=== PATIENT | male | born 1960 | race Caucasian/White ===

== ENCOUNTER 2025-04-23 14:09 | Emergency (ER) | payer MEDICAID, SELFPAY ==
[2025-04-23 14:09] VITALS: BMI 21.2
[2025-04-23 15:00] VITALS: BP 130/79; PULSE 76; RESP 20; TEMP 36.8; O2SAT 96
--- NOTE | 2025-04-23 15:09 | XR_ITS ---
Examination: Lumbar spine 3 views TECHNIQUE: AP lateral, lateral lower lumbar spine 3 views Date and time: April 23, 2025 1545 hours INDICATIONS: Low back pain this week FINDINGS: Lumbar levoscoliosis 15 degrees Moderate osteopenia Chronic osteoporotic compression L1 No acute lumbar fracture Moderate to advanced diffuse lumbar degenerative disc disease No spondylolisthesis IMPRESSION: Moderate to advanced diffuse lumbar degenerative disc disease
--- NOTE | 2025-04-23 15:14 | PD.EDADULT ---
ED General RME/HPI General Chief complaint: Back Pain/Injury Stated complaint: LOWER BACK PAIN RADIATING DOWN BLE Time Seen by Provider: 04/23/25 14:52 Arrival date/time: 04/23/25 14:09 CC: Low back pain HPI onset 5 days ago after lifting, last medications for pain taken was 4 days ago. Patient states chiropractor did not provide relief prior history of similar events has had chronic back pain episodes with exacerbation after lifting patient admits that he was helping his daughter move on 5 days ago which elicited this pain. Patient denies bowel or bladder symptoms saddle anesthesia numbness tingling or weakness in the lower extremities. No OTC medicines taken in the last 48 hours patient is awake alert oriented nontoxic-appearing not in any acute distress. Related Data Home Medications ?Medication ?Instructions ?Recorded ?Confirmed albuterol sulfate 90 mcg/actuation 1 puff inhalation Q4H PRN 02/06/24 02/06/24 aerosol inhaler Shortness Of Breath Or Wheezing fluticasone furoate 200 1 inh inhalation DAILY 02/06/24 02/06/24 mcg-vilanterol 25 mcg/dose inhalation powder Previous Rx's ?Medication ?Instructions ?Recorded ciprofloxacin HCl 500 mg tablet 500 mg PO BID #14 tabs 02/07/24 (Cipro) hydrocodone 5 mg-acetaminophen 325 1 tab PO Q6H PRN pain #30 tabs 02/07/24 mg tablet cyclobenzaprine 10 mg tablet 10 mg PO HS #7 tabs 04/23/25 prednisone 20 mg tablet See Taper PO BID 3 days #6 tabs 04/23/25 Allergies Allergy/AdvReac Type Severity Reaction Status Date / Time No Known Allergies Allergy Verified 04/23/25 14:12 Review of Systems Review of Systems Narrative Review of Systems: GEN: No fever, no chills, no weight loss EYES: No discharge, no visual changes, no pain HEENT: No ear pain, no congestion, no sore throat PULM: No shortness of breath, no cough, no congestion CV: No chest pain, no dyspnea on exertion, no palpitations GI: No nausea, no vomiting, no diarrhea, no pain, no constipation : No frequency, no urgency, no dysuria MUSC/SKEL: No joint pain, + back pain SKIN: No rash PSYCH: No hallucinations, no depression HEME/LYMPH: No easy bleeding or bruising tendencies NEURO: No weakness, no headache Past Medical History Past Medical History NEUROLOGIC: Negative Neurological Disorders or Seizures CARDIAC: Negative Cardiac Disorders or Congestive Heart Failure RESPIRATORY: Positive Chronic Obstructive Pulmonary Disease (COPD) and Asthma GASTROINTESTINAL: Negative Gastrointestinal Disorders or Hepatitis GENITOURINARY: Negative Genitourinary Disorders or Renal Disease MUSCULOSKELETAL: Positive Musculoskeletal Disorders and Fractures (right broken clavicle) ENDOCRINE: Negative Endocrine Disorders, Diabetes Mellitus Type 1 or Diabetes Mellitus Type 2 HEMATOLOGIC: Negative Blood Disorders OTHER HISTORY: Positive Hospitalization (surgery) and Chicken Pox; Negative Autoimmune Disease, Shingles, Blood Transfusions, Blood Transfusion Reaction, Anesthesia Reactions or Cancer Family History FAMILY HISTORY: Negative Family Psychiatric Problems, Family Respiratory Disorders, Family Cardiac Disorders, Family Gastrointestinal Problems, Family Cancer, Family Surgery or Family Anesthesia Reaction Social History SMOKING STATUS: Current every day smoker ED Exam Narrative Physical exam: [General: Thin but not in any acute distress Head normocephalic HEENT: Within acceptable limits Neck is supple nontender Chest equal chest rise nontender to palpation Respiratory: Clear to auscultation no wheezes crackles or rubs CV: Rate rhythm is regular no murmurs rubs or clicks Abdomen is flat, soft nontender no masses positive bowel sounds all 4 quadrants Back: Right lumbar paraspinal tenderness on palpation no left-sided tenderness no spinous process tenderness. Skin: Intact no petechiae rash induration ulceration or crepitus Extremities: Moving all extremity against resistance cap refill less than 2 seconds neurosensory intact Neuro: Awake alert oriented x3 Glascow coma 15 no focal deficits] Course Quality Measures none Orders Category Date Time Status XR lumbar spine 2-3V Stat Exams 04/23/25 15:09 Completed Dexamethasone Inj [Decadron Inj] Med 04/23/25 15:11 Discontinued 10 mg IM X1 ONE Ketorolac Inj [Toradol Inj] Med 04/23/25 15:09 Discontinued 30 mg IM X1 ONE Vital Signs Vital signs: Vital Signs Temperature 98.3 F 04/23/25 15:00 Pulse Rate 76 04/23/25 15:00 Respiratory Rate 20 04/23/25 15:00 Blood Pressure 130/79 04/23/25 15:00 Pulse Oximetry (%) 96 04/23/25 15:00 Oxygen Delivery Method Room Air 04/23/25 15:00 Discharge Plan Plan Patient Disposition: HOME (Self Care) Patient condition on transfer: Stable Prescriptions/Referrals Prescriptions/Med Rec: New prednisone 20 mg tablet See Taper PO BID 3 Days Qty: 6 0RF Taper: Prednisone Taper 20 mg DAILY for 2 Days and 0 Hour 10 mg DAILY for 2 Days and 0 Hour 5 mg DAILY for 7 Days and 0 Hour cyclobenzaprine 10 mg tablet 10 mg PO HS Qty: 7 0RF No Action albuterol sulfate 90 mcg/actuation HFA aerosol inhaler 1 puff INHALATION Q4H PRN (Reason: Shortness Of Breath Or Wheezing) Patient Comments: INHALE 1 PUFF BY MOUTH EVERY 4 HOURS NEEDED fluticasone furoate-vilanterol 200-25 mcg/dose blister with device 1 inh INHALATION DAILY Patient Comments: INHALE 1 PUFF BY MOUTH ONCE DAILY hydrocodone-acetaminophen 5-325 mg tablet 1 tab PO Q6H MDD 4 PRN (Reason: pain) Qty: 30 0RF ciprofloxacin HCl [Cipro] 500 mg tablet 500 mg PO BID Qty: 14 0RF Problem List Clinical Impression: Strain of lumbar region, Lumbar radiculopathy Patient/Caregiver Discharge Instructions Other Activity Instructions:: Take the medications as needed for pain, avoid heavy heavy lifting, follow-up with your primary care provider. Education Materials: ED Back Pain (Acute or Chronic), ED Back Sprain/Strain Print Language: Maltese Stand Alone Forms: Gladys Award Info., Patient Portal Info Letter PA/ELOISA Supervising Physician PA/SHEEP RANCHER Supervising Physician: German White ENP [facility] Clinical Information Provided by patient Medical Records Reviewed [facility] Chronic Illness/Social Conditions Add or document further as needed: Chronic back pain EKG EKG not done Lab Interpretation Labs: none Medication Administration(s) Medication Administration History Discontinued Medications Dexamethasone Sodium Phosphate (Dexamethasone Sod Phos Inj 10 Mg/Ml Vial) 10 mg IM X1 ONE Stop: 04/23/25 15:12 Last Admin: 04/23/25 16:11 Dose: 10 mg Documented By: Ketorolac Tromethamine (Ketorolac Inj 60 Mg/2 Ml Vial) 30 mg IM X1 ONE Stop: 04/23/25 15:10 Last Admin: 04/23/25 16:09 Dose: 30 mg Documented By: Diagnosis Differential diagnosis: Compression fracture low back strain low back pain Dispositon Disposition: Discharge Home
[2025-04-23] MEDS: KETOROLAC INJ 60 MG/2 ML VIAL 30 MG IM (16:09)
[2025-04-23] MEDS: DEXAMETHASONE SOD PHOS INJ 10 MG/ML VIAL IM (16:11)
[2025-04-23 18:24] VITALS: BP 137/84; PULSE 69; RESP 20; TEMP 36.9; O2SAT 95
== END 2025-04-23 21:04 | disposition home or self-care (01) ==
LOC: SERX 16:16
PROVIDERS: Emergency Provider Emergency Medicine; PCP Family Medicine
DX: S39.012A Strain of muscle, fascia and tendon of lower back, initial encounter (principal); X58.XXXA Exposure to other specified factors, initial encounter
CPT/HCPCS: 72100; 96372; 99283; J1100; J1885

== ENCOUNTER → 2025-08-29 | Outpatient (CLI) | payer MEDICAID, SELFPAY ==
--- NOTE | 2025-08-29 15:30 | XR_ITS ---
Examination: CT lung low dose screening, without contrast. 2-D sagittal reconstructions. 2-D coronal reconstructions. 3-D reconstructions. Date and time of exam: August 29, 2025, 1520 hours INDICATIONS: Smoking history 50 years nicotine dependence, screening CTDI: vol (mGy): 8.41 DLP: (mGycm): 328 Technique: Multiple 1.25 mm axial sections of the lung low dose screening have been obtained. 2-D sagittal and coronal reconstructions have been obtained. 3-D reconstructions have been obtained. Low dose protocols were performed. One or more of the following dose reduction techniques were used; automated exposure control, adjustment of the mA and/or KV according to patient size, use of iterative reconstruction technique. Findings: Thoracic aortic calcification no aneurysmal dilatation Pulmonary artery segments are not enlarged Moderate calcification left anterior descending coronary artery No paratracheal tracheobronchial or bronchopulmonary adenopathy COPD with areas of airspace destruction 11 mm pulmonary nodule left upper lobe image 78 9 mm pulmonary nodule spiculated margins right upper lobe image 118 13 mm pulmonary nodule spiculated margins left lower lobe image 173 3 mm pulmonary nodule left lower lobe image 278 No visualized liver or splenic lesion Contracted gallbladder No pancreatic mass No hydronephrosis IMPRESSION: Pulmonary nodules as above, differential would include lung carcinoma, pulmonary nodular metastatic disease The largest nodule in the left lower lobe is amenable to CT-guided percutaneous biopsy as clinically warranted
== END | disposition home or self-care (01) ==
PROVIDERS: PCP Family Medicine; Referring Provider Family Medicine; Visit Provider Family Medicine
DX: R91.8 Other nonspecific abnormal finding of lung field (principal); F17.210 Nicotine dependence, cigarettes, uncomplicated
CPT/HCPCS: 71271